=== PATIENT | male | born 1940 | race Caucasian/White ===

== ENCOUNTER 2018-08-08 16:29 | Outpatient (REF) | payer MEDICARE, MEDICAID, SELFPAY ==
[2018-08-08 18:35] LABS: BUN 17 mg/dL (7-18); CREATININE 0.67 mg/dL (0.70-1.30)
== END 2018-08-08 16:49 ==
LOC: LBN 16:29
PROVIDERS: PCP Family Medicine; Visit Provider Family Medicine
DX: Z04.89 Encounter for examination and observation for other specified reasons (principal); G30.9 Alzheimer's disease, unspecified; I10 Essential (primary) hypertension; M62.81 Muscle weakness (generalized)
CPT/HCPCS: 84520; 82565

== ENCOUNTER 2019-08-11 12:43 | Outpatient (CLI) | payer MEDICARE, MEDICAID, SELFPAY ==
[2019-08-11 14:00] LABS: Albumin 3.9 g/dL (3.4-5.0); Anion Gap 9.1 mmol/L (3-11); BUN 18 mg/dL (7-18); CO2 29.9 mmol/L (21.0-32.0); CREATININE 0.88 mg/dL (0.70-1.30); Chloride 110 mmol/L (98-107); Glucose 76 mg/dL (70-100); PHOSPHORUS 3.3 mg/dL (2.6-4.7); Sodium 149 mmol/L (136-145)
== END 2019-08-11 13:03 ==
PROVIDERS: PCP Family Medicine; Visit Provider Nurse Practitioner Adult Health
DX: I10 Essential (primary) hypertension (principal); E72.11 Homocystinuria; E78.5 Hyperlipidemia, unspecified; G60.9 Hereditary and idiopathic neuropathy, unspecified
CPT/HCPCS: 36415; 80069

== ENCOUNTER 2019-12-08 10:01 | Outpatient (CLI) | payer MEDICARE, MEDICAID, SELFPAY ==
[2019-12-08 11:12] LABS: ALT 22 U/L (16-63); AST 13 U/L (15-37); Albumin 3.6 g/dL (3.4-5.0); Alkaline Phosphatase 49 U/L (46-116); Anion Gap 11.5 mmol/L (3-11); BUN 18 mg/dL (7-18); Bilirubin, Total 0.3 mg/dL (0.2-1.0); CO2 26.5 mmol/L (21.0-32.0); CREATININE 0.84 mg/dL (0.70-1.30); Calcium 8.8 mg/dL (8.5-10.1); Chloride 110 mmol/L (98-107); Glucose 115 mg/dL (74-106); Potassium 4.2 mmol/L (3.5-5.1); Sodium 148 mmol/L (136-145); Total Protein 6.3 g/dL (6.4-8.2)
[2019-12-08 11:20] LABS: HCT 46.7 % (40.0-50.0); HGB 14.9 g/dL (13.5-17.5); Mean Corp. HGB Concentration 31.9 g/dL (32.0-36.0); Mean Corpuscular Hemoglobin 29.8 pg (27.0-33.0); Mean Corpuscular Volume 93.4 fL (80-95); Mean Platelet Volume 11.2 fL (8.0-11.0); Platelet Count 138 x1000/uL (130-400); RBC Distribution Width 16.9 % (11.8-14.1); White Blood Cell Count 4.58 k/cumm (4.4-10.8)
[2019-12-08 15:51] LABS: Calculated LDL 86 mg/dL (<100); Cholesterol 146 mg/dL (<200); HDL Cholesterol 28 mg/dL (40-60); Triglyceride 162 mg/dL (<150)
== END 2019-12-08 10:21 ==
PROVIDERS: PCP Family Medicine; Visit Provider Nurse Practitioner Adult Health
DX: E78.5 Hyperlipidemia, unspecified (principal); I10 Essential (primary) hypertension; G89.29 Other chronic pain; M62.81 Muscle weakness (generalized); G60.9 Hereditary and idiopathic neuropathy, unspecified
CPT/HCPCS: 36415; 80053; 80061; 85027

== ENCOUNTER 2020-01-07 16:15 | Outpatient (REF) | payer MEDICARE, MEDICAID, SELFPAY ==
[2020-01-11 08:18] LABS: COVID-19 RT-PCR Result Not Detected
== END 2020-01-07 16:35 ==
LOC: LBN 16:15
PROVIDERS: PCP Family Medicine; Visit Provider Nurse Practitioner Adult Health
DX: Z20.828 Contact with and (suspected) exposure to other viral communicable diseases (principal); Z11.59 Encounter for screening for other viral diseases
CPT/HCPCS: 87449; U0003

== ENCOUNTER 2020-03-03 14:08 | Outpatient (REF) | payer MEDICARE, MEDICAID, SELFPAY ==
[2020-03-04 20:04] LABS: COVID-19 RT-PCR UVMMC Result Negative (Negative)
== END 2020-03-03 14:28 ==
LOC: LBN 14:08
PROVIDERS: PCP Family Medicine; Visit Provider Nurse Practitioner Adult Health
DX: Z11.59 Encounter for screening for other viral diseases (principal); Z20.828 Contact with and (suspected) exposure to other viral communicable diseases
CPT/HCPCS: U0003